=== PATIENT | female | born 1985 ===

== ENCOUNTER 2018-05-16 08:30 | Inpatient (IN) | payer OTHER ==
[~2018-05-16] VITALS: Ht 160 cm; Wt 114.8 kg
[2018-05-16] MEDS ORDERED: PRENATAL TABLE1 EAC1 PO (12:19)
== END 2018-05-18 14:41 | DRG 766 ==
LOC: LDR 08:30 → O/R 14:07 → OB/GYN 15:54
PROVIDERS: Obstetrics & Gynecology
PROC: 0UL70ZZ Occlusion of Bilateral Fallopian Tubes, Open Approach (ICD-10-PCS; 2018-05-16)
PROC: 4A1HXCZ Monitoring of Products of Conception, Cardiac Rate, External Approach (ICD-10-PCS; 2018-05-16)
PROC: 10D00Z1 Extraction of Products of Conception, Low, Open Approach (ICD-10-PCS; principal; 2018-05-16 12:00)
DX: O34.211 Maternal care for low transverse scar from previous cesarean delivery (principal); Z3A.37 37 weeks gestation of pregnancy; Z37.0 Single live birth; Z30.2 Encounter for sterilization